=== PATIENT | male | born 1950 | race Caucasian/White ===

== ENCOUNTER 2021-08-15 11:06 | Emergency (ER) | payer OTHER ==
[~2021-08-15] VITALS: Ht 175.3 cm; Wt 77.1 kg
[2021-08-15 11:08] VITALS: BP 119/54
[2021-08-15 13:53] LABS: URINE BILIRUBIN NEGATIVE (Negative); URINE BLOOD TRACE (Negative); URINE CLARITY CLEAR; URINE COLOR YELLOW; URINE GLUCOSE-RANDOM* NEGATIVE (Negative); URINE KETONES NEGATIVE (Negative); URINE LEUKOCYTES-REFLEX NEGATIVE (Negative); URINE NITRITE-REFLEX NEGATIVE (Negative); URINE PROTEIN (DIPSTICK) NEGATIVE (Negative); URINE SPECIFIC GRAVITY <= 1.005 (1.005-1.035); URINE UROBILINOGEN 0.2 E.U./dl (0.2-1.0)
[2021-08-15 13:54] LABS: HEMATOCRIT 40.2 % (42.0-52.0); HEMOGLOBIN 13.6 gm/dL (14.0-18.0); MCH 30.5 pg (26.0-34.0); MCHC 33.9 g/dL (28.0-37.0); MCV 90.1 fL (80.0-100.0); RBC 4.46 mil/uL (4.50-6.00); RDW 13.4 % (10.5-14.5); WBC 9.5 thou/uL (4.0-11.0)
[2021-08-15 14:04] LABS: CALCIUM 8.9 mg/dL (8.5-10.1); CREATININE 0.7 mg/dL (0.7-1.3); POTASSIUM 3.5 mmol/L (3.5-5.1)
[2021-08-15 14:10] LABS: ALBUMIN 3.5 g/dL (3.4-5.0); TOTAL BILIRUBIN 0.6 mg/dL (0.2-1.0); TOTAL PROTEIN 7.2 g/dL (6.4-8.2)
--- NOTE | 2021-08-15 15:34 | EKG ---
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: nishant umanzor : 1950 Requested By: Madhuri Kidd Order Number: [id number] MD: Phan Garcia Measurements Intervals [place] Rate: 82 P: 138 TX: 138 QRS: -9 QRSD: 83 T: -26 QT: 463 QTc: 541 Interpretive Statements Sinus or ectopic atrial rhythm Probable left atrial enlargement Low voltage, extremity leads No previous ECG available for comparison Electronically Signed On 08-15-2021 15:33:59 CDT by Phan Garcia [email or web address] <ELECTRONICALLY SIGNED> By: Phan Garcia MD, [facility] 08/15/21 1533 1348 1348 Phan Garcia MD, FACC /EPI
[2021-08-15] MEDS ORDERED: TYLENOL325 MG PO (16:34)
[2021-08-15] MEDS ORDERED: VITAMIN D3250 MC1 PO (16:35)
[2021-08-15] MEDS ORDERED: DEPAKOTE125 MG PO (16:35)
[2021-08-15] MEDS ORDERED: HYDROXYZINE HCL25 M2 PO (16:36)
[2021-08-15] MEDS ORDERED: MELATONIN3 M1 PO (16:36)
[2021-08-15] MEDS ORDERED: IPRAT-ALBUT 0.5-3 ML INH (16:36)
[2021-08-15] MEDS ORDERED: DESYREL150 MG PO (16:37)
[2021-08-15] MEDS ORDERED: KLOR-CON M2020 MEQ PO (16:37)
[2021-08-15] MEDS ORDERED: NEOSPORIN OIN28.3 GM TOP (16:37)
[2021-08-15] MEDS ORDERED: FLOMAX0.4 MG PO (16:37)
== END 2021-08-15 14:43 ==
LOC: ER 11:06
PROVIDERS: Student in an Organized Health Care Education/Training Program
DX: G30.9 Alzheimer's disease, unspecified (principal); Z20.822 Contact with and (suspected) exposure to COVID-19; F02.81 Dementia in other diseases classified elsewhere, unspecified severity, with behavioral disturbance; E78.5 Hyperlipidemia, unspecified

== ENCOUNTER 2021-08-15 12:30 | Inpatient (IN) | payer OTHER ==
[~2021-08-15] VITALS: Ht 170.2 cm; Wt 69.0 kg
[2021-08-15] MEDS ORDERED: TYLENOL325 MG PO (16:34)
[2021-08-15] MEDS ORDERED: VITAMIN D3250 MC1 PO (16:35)
[2021-08-15] MEDS ORDERED: DEPAKOTE125 MG PO (16:35)
[2021-08-15] MEDS ORDERED: IPRAT-ALBUT 0.5-3 ML INH (16:36)
[2021-08-15] MEDS ORDERED: HYDROXYZINE HCL25 M2 PO (16:36)
[2021-08-15] MEDS ORDERED: MELATONIN3 M1 PO (16:36)
[2021-08-15] MEDS ORDERED: KLOR-CON M2020 MEQ PO (16:37)
[2021-08-15] MEDS ORDERED: NEOSPORIN OIN28.3 GM TOP (16:37)
[2021-08-15] MEDS ORDERED: DESYREL150 MG PO (16:37)
[2021-08-15] MEDS ORDERED: FLOMAX0.4 MG PO (16:37)
--- NOTE | 2021-08-15 18:35 | NUR ---
Arrived unit at 1707 via cart with a staff and security. Pt was wearing a brief and no belongings noted. Lungs clear, active bowel sound. No wounds noted. Pt have Scratch eve on both legs, a scrape bruise on his left arm. Pt was confused, no sign of SI/HI noted. No c/o pain at this time. Assessments completed, vss. DPOA was contacted for consent to treat and Fall contract. At this time pt is in his room resting. Pt have a NKDA. Full code. DPOA stated pt is allergic to bee stings. Pt is not a Fall risk. ID BAND ON. At this time pt is in his room resting. Will continue to monitor.
[2021-08-15 19:47] VITALS: BP 120/72
[2021-08-15 19:48] VITALS: BP 120/55
[2021-08-15 20:40] VITALS: BP 120/55
--- NOTE | 2021-08-16 04:59 | NUR ---
PATIENT HAS SLEPT THE WHOLE SHIFT. HE AWOKE SLIGHTLY ON ASSESSMENT BUT DID NOT SPEAK A WORD TONIGHT. HE APPEARED NOT TO WANT TO BE BOTHERED. HE WAS SO DROWSY HE WAS UNABLE TO TAKE HIS HS MEDS. DR CHOE WAS NOTIFIED OF THIS AND STATES IT WAS OKAY SINCE HE WAS STILL SLEEPING FROM EARLIER GEODON. PATIENT DID NOT APPEAR OR VOICE ANY PAIN ISSUES. UNABLE TO DO MUCH FOR PATIENT TONIGHT D/T SLEEPING. ROUTINE ROUNDS AND PRN ROUNDS DONE TO ASSESS PATIENT SAFETY AND STATUS. CONTINUING TO MONITOR.
[2021-08-16 05:15] LABS: CHOLESTEROL 144 mg/dL (<200); HDL CHOLESTEROL 30 mg/dL (>40); LDL CHOLESTEROL 79 mg/dL (<100); SERUM ASSESSMENT Clear; TC:HDL 4.8 Ratio (Not establshd); TRIGLYCERIDE 177 mg/dL (<150); VLDL 35 mg/dL (<40)
[2021-08-16 13:55] VITALS: BP 110/53
--- NOTE | 2021-08-16 17:34 | NUR ---
Franko was alert and oriented to self only throughout the day. This morning pt started the shift withdrawn and isolative to his room. He was noted to be soaked in urine INSOLE TACKER and this RN went in to change pt. He required education and a lot of encouragement regarding cares; he tried to constantly cover himself by pulling his wet brief back up but with repeated education as to the care being given, pt was cooperative. He mumbled and did not participate in assessment questions often stating "mmhmm" and displayed poor eye contact. He allowed this RN to physically assess him but he was unable to converse. Pt refused his morning medications but later took his evening depakote whole in pudding without difficulty. Around lunch time pt was noted by INSOLE TACKER to have BM smeared on his chair, bed, and on himself. It took 3 staff members to clean pt up with with repeated education given regarding care, pt was resistant but allowed staff to clean pt up. He then was brought to the dayroom where staff could monitor pt more closely. Pt was also placed on high fall risk as pt is unsteady on his feet and tends to shuffle his feet. This morning pt had a good appetite but was noted using his hands to feed himself. Pt slept in the kristian chair in the dayroom throughout dinner. Pt has new orders for zyprexa 2.5 mg BID, first dose to be at HS tonight. Pt has orders for zyprexa 2.5 mg IM for agitation/aggression, and orders to be toileted every 3 hours. Will continue to monitor.
[2021-08-16 19:36] VITALS: BP 136/69
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
[2021-08-17 04:07] LABS: GLYCOHEMOGLOBIN (HGB A1C) 5.6 % (4.8-5.6)
--- NOTE | 2021-08-17 04:34 | NUR ---
ASSUMED CARE ON 08/16/21 @ 1900, SEATED IN A OPAL CHAIR, CALM AND COOPERATIVE ASSESSMENT, INCONTINENT OF B&B. TAKES MEDS WHOLE WITH THIN WATER. MECHANICAL SOFT DIET. HIGH FALL RISK, STANDS TO TRANSFER TO TOILET, BUT HAD ALREADY BEEN INCONTINENT OF BLADDER. NO PRN REQUIRED FOR BEHAVIORS. SLEEPING WELL IN BED WITH BED IN LOW POSITION AND BED ALARM SET. WILL CONTINUE TO MONITOR PER UNIT PROTOCOL FOR SAFETY AND COMFORT.
[2021-08-17 09:55] VITALS: BP 106/58
[2021-08-17 10:53] VITALS: BP 106/58
--- NOTE | 2021-08-17 11:31 | NUR ---
Assumed care from overnight shift this am. Pt was sitting in chair in [facility] area during this time. Pt was only oriented to self during assessment. Pt knew his name, but could not voice anything else. When asked if he had any feelings of depression, pt stated no. When asked about anxiety, pt stated "yes, yes" but did not rate a score when asked. When asked if he had suicidal thoughts, pt stated "no." When asked if he had homicidal thoughts, pt did not answer, and just stared at this staff. Nurse repeated question, but client did not answer. Nurse asked about any audio or visual hallucinations, and client stated "no." Bowel sounds were present in all quadrants and lung sounds were normal. Pt refused medications during this time, and medications had to be crushed or spilt in half to be given to client. Nursing spoon fed client at this time. Shortly after breakfast and medication administration, the smell of feces was noted. Client was found to have wiped feces on his chair, blanket, pants, and hands while folding the blanket underneath him. Staff then changed this client, asking for assistance from VEHICLE CALIBRATION ENGINEER staff, further nursing staff, and security as client became aggressive, combative, and refused to stop reaching for his private area and fecal matter. This was done in an attempt to avoid medicating the client and as the least intrusive measure to assist in toileting and changing the client. Client was cleaned, briefs were changed, and new clothing was put on client to promote hygiene, prevent infection, and aid in assisting client. Client was then taken back to day room for fall precaution and observation to ensure safety.
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
[2021-08-17 19:15] VITALS: BP 126/73
--- NOTE | 2021-08-18 03:06 | NUR ---
PATIENT HAS BEEN IN BED SINCE BEGINING OF SHIFT, COULD NOT OR DID NOT WANT TO ANSWER ASSESSMENT QUESTIONS. PATIENT IS MED COMPLIANT WHEN MEDS ARE CRUSHED AND PUT IN PUDDING. PATIENT DOES DENY ALL PSYCH, IS INCONTINENT OF BOWEL AND BLADDER AND USES A W/C TO AMBULATE.
[2021-08-18 09:08] VITALS: BP 99/46
--- NOTE | 2021-08-18 14:06 | NUR ---
PATIENT CARE ASSUMED AT 0700, PATIENT SITTING IN THE COMMON AREA, PATIENT IS ALERT TO SELF AND CONFUSED NOT PLEASANT WITH ASSESSMENT BUT I WAS ABLE TO COMPLETE IT, BOWEL SOUND ACTIVE WITH SOFT AND ROUNDED ABDOMEN, SAT IN GROUP BU WITH SOFT AND ROUNDED ABDOMEN, LUNGS CLEAR, REGULAR HR, SAT IN GROUP BUT DID NOT PATICIPATE, PATIENT IS TO REMAIN IN HIS ROOM DUE TO COVID POSITIVE, FALL PRECAUTION IN PLACE, HE DENIES SI/HI. WILL CONTINUE TO MONITOR PATIENT FOR SAFETY AND BEHAVIOR
--- NOTE | 2021-08-18 17:49 | NUR ---
Updates faxed to [facility]
[2021-08-18 19:30] VITALS: BP 127/71
[2021-08-18 20:30] VITALS: BP 130/72
--- NOTE | 2021-08-19 05:49 | NUR ---
Attempt x 2 to get second COVID test, pt was adamant he did not want it. He grabbed the swab and would not allow me to advance. Pt remains asymptomatic, no coughing, Temp at HS was 99.0,
[2021-08-19 09:58] VITALS: BP 105/60
[2021-08-19 11:32] VITALS: BP 105/60
--- NOTE | 2021-08-19 14:34 | NUR ---
RESUMMED CARE FROM OVERNIGHT SHIFT THIS AM, PATIENT IN ROOM SLEEPING QUIETLY. PATIENT ALERT TO SELF ONLY PATIENT UNABLE TO TELL ME ABOUT SI/HI/AH/VH AT PRESENT. PATIENTS ABDOMEN SOFT BOWEL SOUNDS PRESENT PATIENTS LUNGS CLEAR. PATIENT TOOK MEDICATION CRUSHED IN APPLESAUCE, I DID PATIENTS COVID TEST THIS AM RESULTS PENDING AT THIS TIME. PATIENT CALM QUIET COOPERATIVE WILL CONTINUE TO MONITOR PATIENT FOR SAFETY AND BEHAVIORS.
--- NOTE | 2021-08-19 19:38 | NUR ---
COVID TEST RESULTS CAME BACK "NONE DETECTED." PT TO COME OFF ISOLATION PRECAUTIONS.
[2021-08-19 21:19] VITALS: BP 89/46
[2021-08-19 22:09] VITALS: BP 96/59
[2021-08-20 03:34] VITALS: BP 109/69
--- NOTE | 2021-08-20 04:42 | NUR ---
AT ONSET OF SHIFT PT WAS RESTING IN BED ASLEEP. PT WAS ON ISOLATION PRECAUTIONS AT ONSET OF SHIFT UNTIL NEGATIVE PCR TEST RESULTED. PT WAS LETHARGIC AND MOSTLY NONVERBAL DURING VITAL SIGNS AND MED PASS. PT WOULD NOT OPEN EYES TO LOOK AT MILL ATTENDANT, WOULD NOT REPOSITION IN BED, WOULD NOT ANSWER QUESTIONS AND WOULD NOT OPEN MOUTH TO TAKE MEDICATION CRUSHED IN PUDDING. VITAL SIGNS WERE OBTAINED; BLOOD PRESSURE AT 2100 WAS 89/46. RN CALLED MIKE ZEPEDA. OBTAINED ORDERS FOR 1,000 ML NORMAL SALINE. PT RECEIVED FLUIDS WHILE ON 1:1 WITH STAFF. BLOOD PRESSURE INCREASED TO 109/67 AFTER FLUIDS WERE ADMINISTERED. AFTER RECEIVING FLUIDS PT WAS LESS LETHARGIC AND ABLE TO SPEAK TO STAFF. PT'S SPEECH WAS SLURRED AND NONSENSICAL. PT DID NOT ANSWER QUESTIONS APPROPRIATELY. UNABLE TO ASSESS SI, HI, AND AVH. EVENTUALLY PT WAS COMPLIANT WITH PO MEDICATIONS. PT'S APPEARANCE WAS DISHEVELED. PT DID NOT GET OUT OF BED DURING THE SHIFT, BUT PT DID REPOSITION SELF IN BED. PT WAS INCONTINENT OF URINE. DURING CARES PT WOULD BECOME FUSSY; SHOUTING NO AND TRYING TO PULL CLOTHES BACK ON. PT DID TRY TO REMOVE IV, BUT WAS REDIRECTABLE BY STAFF.
[2021-08-20 06:27] LABS: CALCIUM 8.8 mg/dL (8.5-10.1); CREATININE 0.7 mg/dL (0.7-1.3); POTASSIUM 4.2 mmol/L (3.5-5.1)
[2021-08-20 07:39] VITALS: BP 113/64
[2021-08-20 09:29] VITALS: BP 113/64
--- NOTE | 2021-08-20 10:39 | NUR ---
Assumed care from overnight shift this am. Client was in activity area sitting in [facility]. Client knew that he was in the hospital, but did not know his name, the year, date, or hospital in which he was in. Client stated "yeah, yeah" when asked if he had depression or anxiety, but did not specify which he had and did not want to elaborate further on assessment. When asked about suicidal and homicidal ideation, client voiced "yeah, yeah" on both, and continued to state this when staff clarifed if he meant both. Client once again refused to elaborate further when asked if he had a plan or intent and appeared disoriented, eyes staring behind staff, and head nodding. Lung sounds clear; bowel sounds present. Client took his medications at this time along side some applesauce with staff assistance. Client is currently in activity area so that staff can monitor and observe client. No further concerns at this time. Will continue to monitor for pt safety and concerns.
--- NOTE | 2021-08-20 10:49 | NUR ---
Pt presented with agitation, kicking arms and legs and refusing to stay in chair. Pt kept trying to leave gerichair, refusing toileting or other assistance, starting to grunt and yell. Pt became combative with staff, trying to leave chair despite staff redirection. Due to patient safety, pt was given prn olanzapine 6q for agitation via IM. Pt is currently in chair resting. No further concerns noted at this time. Will continue to monitor for pt safety and concerns.
[2021-08-20 19:56] VITALS: BP 115/73
--- NOTE | 2021-08-21 03:37 | NUR ---
AT ONSET OF SHIFT PT WAS SITTIG IN DAY ROOM IN OPAL CHAIR WITH LAP JERALD FASTENED IN THE FRONT. THIS SHIFT PT WAS DISORIENTED X4. PT CANNOT HAVE A LOGICAL, LINEAR CONVERSATION. PT DID TALK THIS SHIFT BUT HIS SPEECH IS NONSENSICAL. PT CANNOT ANSWER QUESTIONS APPROPRIATELY OR FOLLOW INSTRUCTIONS. PT IS A HIGH FALL RISK. PT MADE SEVERAL ATTEMPTS TO CLIMB OUT OF THE OPAL CHAIR. PT IS STRONG ENOUGH TO LIFT HIS BODY OUT OF THE CHAIR AND PUSH HIMSELF BACK FAR ENOUGH SO THAT HE IS SITTING ON THE BACK OF THE CHAIR. PT ALSO ATTEMPTS TO CLIMB OUT OF BED BY CLIMBING OVER THE RAILINGS. WHEN REDIRECTED BY STAFF PT ATTEMPTED TO SWING AT STAFF, CUSSED AT STAFF AND CALLED STAFF NAMES. PT DOES NOT RESPOND TO REDIRECTION AND IS RESISTIVE WITH CARES. PT RECEIVED IM OLANZAPINE AT 2120 FOR AGITATION. PT CONTINUED TO ATTEMPT TO CLIMB OUT OF CHAIR AND YELL AT STAFF. PT ALSO TALKS TO HIMSELF AND HIS LANGUAGE WAS BECOMING INCREASINGLY AGITATED TALKING ABOUT "FUCKING MONEY" AND "WHORES." RN CALLED DR. CHOE AND RECEIVED ORDERS FOR 15MG GEODON IM AND TO USE THE LAP JERALD FASTENED BEHIND THE PATIENT AND TO PLACE THE PT ON A 1:1 WHILE LAP JERALD WAS IN USE. GEODON IM WAS ADMINISTERED AT 2308. LAP BUDY WAS IN PLACE FROM 2310 TO ROUGHLY 2345. PT WAS MOVED TO HIS ROOM AND PLACED IN BED. PT WAS RESTLESS IN BED, HALLUCINATING AND REACHING FOR OBJECTS THAT WERE NOT THERE. PT ASKED TO USE THE TOILET TWICE AND WAS ASSISTED BY STAFF. WHILE IN THE BATHROOM PT ATTEMPTED TO SIT DOWN NEXT THE TOILET. ONCE ON THE TOILET PT DID URINATE BUT PT STOOD UP OFF THE TOILET BEFORE HE WAS FINISHED URINATING. PT WAS MOVED BACK TO THE DAY ROOM, SEATED IN OPAL CHAIR WITH LAP JERALD AND 1:1. AT APROX 0245.
[2021-08-21 09:01] VITALS: BP 127/66
[2021-08-21 09:31] VITALS: BP 127/66
--- NOTE | 2021-08-21 15:39 | NUR ---
Resummed care from overnight shift this am. [facility]. Client presented asleep upon assessment, with even respirations. Client was seated at table with feet propped up in chair. Per report of evening or night nurse supervisor, client had slept zero hours, and had been combative night prior. Upon assessment, client continued to sleep and responded to staff attempts to wake him up by opening eyes and shaking head. As client had already been given prns night prior, morning medications were declined, and Dr Garcia was notifed in team meeting today. Adjustments were made to client medications by Dr. Garcia during this time. Staff was unable to assess state of si/hi/and/or audio and visual hallucinations due to client's sleeping and prns. Lung sounds normal; bowel sounds present. Client was toileted shortly after assessment. Client briefs and pants were changed and client was cleaned by nursing and EXPERIMENTAL MECHANIC staff. Client was then taken back into activity area in [facility] and placed by table for patient safetly. No further concerns at this time. Will continue to [facility] for patient safety and concerns.
--- NOTE | 2021-08-21 18:04 | NUR ---
MARGOT and Dr. Waldron particpated in family meeting with Swati. An update was given and medication discussed. There were no concerns during this meeting. MARGOT will continue to follow up
--- NOTE | 2021-08-21 18:38 | NUR ---
Nursing checked on patient during lunch time. Patient was sitting in gerichair eating lunch with MANAGER COMPENSATION support. Client did not voice any concerns at this time. Client still presented disoriented, and was not able to answer questions, however, was able to swallow and eat food with assistance. Client fell asleep after lunch in gerichair. Nursing adjusted pillow and repositioned for comfort at this time. No further concerns at this time. Will continue to monitor for pt safety and psychiatric concerns.
[2021-08-21 20:00] VITALS: BP 101/57
--- NOTE | 2021-08-22 02:45 | NUR ---
Assumed care on 08/21/21 @ 1900, in bed cooperative with assessment and medication administration, although quite drowsy. Able to swollow meds whole with water. Returned to sleep. Labs drawn for BMP and CBC without diff in morning lab draw. Will continue to monitor for comfort and safety as per unit protocol. Bed in low position and bed alarm set.
[2021-08-22 04:01] LABS: HEMATOCRIT 39.1 % (42.0-52.0); MCH 30.5 pg (26.0-34.0); MCHC 33.3 g/dL (28.0-37.0); MCV 91.5 fL (80.0-100.0); RBC 4.27 mil/uL (4.50-6.00); RDW 13.2 % (10.5-14.5); WBC 9.8 thou/uL (4.0-11.0)
[2021-08-22 04:33] LABS: CALCIUM 8.7 mg/dL (8.5-10.1); CREATININE 0.7 mg/dL (0.7-1.3); POTASSIUM 3.9 mmol/L (3.5-5.1)
[2021-08-22 09:51] VITALS: BP 133/68
--- NOTE | 2021-08-22 10:45 | NUR ---
RT Progress Note- Franko has participated very little with recreation therapy team. Franko had not been speaking upon first portion of this review period and only allowed for passive presence in groups. Over the last days, he has been sleeping much of the time. As Franko becomes more alert, staff will encourage further participation in both the milieu and recreation therapy groups as he does not wake when approached at this time.
[2021-08-22 10:56] VITALS: BP 133/68
--- NOTE | 2021-08-22 12:50 | NUR ---
Pt was alert and oriented to self only throughout the day. Pt mumbles "mmhmm" but otherwise is non-verbal, making it difficult to assess pt. Pt did not display SI/HI behaviors and does not appear to be responding to internal stimuli. He was drowsy this morning but easily arousable. Per report pt took his medications whole with water last night, but this morning pt had difficulty following directions and would not take his pills whole with water. This RN reattempted about an hour later with pills whole in pudding and pt was compliant with taking bites of pudding with the pills and appeared to have been swallowing them but per WELDER METAL FAB pt cheeked his medications and spit them out while they were getting him cleaned up. Unable to know what pt was able to swallow and what was spit out as per WELDER METAL FAB pills were saturated in urine and were tossed out. Pt's AM medications were marked as refused. Pt was meal compliant and able to feed himself, requiring some assistance. Pt was restless at times, and tried to get out of his chair, but was able to be redirected. Pt is incontinent but was less resistant with cares this shift. Will continue to monitor.
[2021-08-22 19:53] VITALS: BP 105/55
--- NOTE | 2021-08-23 03:16 | NUR ---
PATIENT TOOK MEDICATIONS CRUSHED WITH PUDDING AND HAS BEEN SLEEPING ON AND OFF, HAS BEEN RESTLESS AT TIME AND WHEN STAFF IS INCONTINENT, HE WILL FIGHT STAFF TOOTH AND NAIL TO BE LEFT ALONE.
[2021-08-23 09:38] VITALS: BP 114/65
[2021-08-23 09:59] VITALS: BP 114/65
--- NOTE | 2021-08-23 16:07 | NUR ---
Franko was drowsy throughout the day but easily arousable with persistance. Pt responded to his name by stating "mmhmm" but was otherwise nonverbal. Pt was drowsy throughout the day, sleeping in the dayroom in the kristian-chair. Pt was able to eat breakfast but slept through lunch. Pt was changed and was laid down in bed where pt may be more comfortable, with the bed alarm on. Pt was medication complaint, taking medications crushed in yogurt this morning. Pt remains on high fall risk precautions and has a yellow shirt on and yellow non-skid socks on. Pt did not appear to be in pain throughout the shift and was in a comfortable position. Will continue to monitor.
[2021-08-23 19:06] VITALS: BP 118/50
--- NOTE | 2021-08-24 02:34 | NUR ---
PATIENT IS CONFUSED AND UNABLE TO HOLD A CONVERSATION, PATIENT MIGHT BE ORIENTED TO SELF BUT ITS HARD TO TELL, PATIENT TOOK MEDICATION TONIGHT CRUSHED IN PUDDING. PATIENT HAS SLEPT TRHOUGH THE NIGHT.
[2021-08-24 09:28] VITALS: BP 91/76
[2021-08-24 11:29] VITALS: BP 91/76
--- NOTE | 2021-08-24 12:35 | NUR ---
PATIENT CARE RESUMMED AT 0700. PATIENT WAS UP IN THE OPAL-CHAIR UPON ROUNDS. PATIENT IS DROWSY THROUGHOUT THE DAY, BUT IS EASILY AROUSABLE. WHEN PATIENT AWAKES, PATIENT MUMBLES "MMHMM" BUT OTHERWISE NONVERVAL, MAKING THE ASSESSMENT ON THE PATIENT DIFFICULT. PATIENT PRESENTS TO HAVE NO SIGNS OF SI/HI/AH/VH. DURING ASSESSMENT PATIENT SHOWS NO FACIAL GRIMMICING OR SIGNS OF HAVING PAIN. PATIENTS LUNG SOUNDS ARE CLEAR. PATIENTS ABDOMEN IS SOFT WITH BOWEL SOUNDS PRESENT IN ALL FOUR QUADRANTS. PATIENT IS IS A&O*0, SLEEPING MOST OF THE DAY WITH SUDDLE PARTS OF THE DAY WHERE PATIENT IS ALERT. ROTATING AND TOILETING PATIENT EVERY 2 HOURS AND NEEDED. WILL CONTINUE TO MONITOR PATIENT FOR SAFETY AND BEHAVIORS. FALL PREVENTIONS ARE IN ORDER FOR THE PATIENT.
[2021-08-24 18:47] VITALS: BP 102/56
[2021-08-24 19:00] VITALS: BP 102/56
--- NOTE | 2021-08-25 02:26 | NUR ---
PATIENT CARE WAS RESUMED AT 1900. HE WAS SITTING IN THE DININING AREA. ALERT AND HE AMBULATES WITH OPAL CHAIR. LUNGS ARE CLEAR BS ACTIVE X4 QUADS. INCONTINENT OF BOWEL AND BLADDER. HE DENIES PAINS, SI/AVH/HI.MEDS ARE CRUSHED IN APPLE SAUCE. PATINET IS UNABLE TO VERBALIZE SOME NEEDS. HE IS A MAX ASSIT WITH CARE. CHAIR AND BED WERE ALARMED RESPECTIVELY. BED IS LOW, LOCKED AND ALARMED. [id number] CHECK IS ONGOING. ASSISTED WITH [facility] AND TRANSFERS.
[2021-08-25 09:07] VITALS: BP 129/71
[2021-08-25 11:57] VITALS: BP 129/71
--- NOTE | 2021-08-25 12:29 | NUR ---
3012 MARGOT spoke with Alek, , shruthi at [facility]. Alek stated she was unable to set up transportation fo the Pt due to the administration still looking over the clinical notes. Alek also requested a COVID test for the Pt. MARGOT point out the Pt has been tested several times since his admission with the last test being on 08/22/2021. MARGOT did fax over the requested notes. MARGOT will wait to hear back from the facility
[2021-08-25] MEDS ORDERED: FLOMAX0.4 MG PO (12:53)
[2021-08-25] MEDS ORDERED: DEPAKOTE SPRIN125 MG PO (12:54)
[2021-08-25] MEDS ORDERED: TRAZODONE HCL50 MG PO (12:56)
[2021-08-25] MEDS ORDERED: ZYPREXA 5 MG TAB5 M1 PO (12:58)
[2021-08-25] MEDS ORDERED: STIMULANT LAXA1 EACH PO (13:00)
--- NOTE | 2021-08-25 13:28 | NUR ---
1230 MARGOT spoke with Alek again concerning discharge. Alek has been able to set up transportation for the Pt. Discharge set for 08/25/2021 @ 2pm. Pt's DPOA was notified of this discharge
--- NOTE | 2021-08-25 14:54 | NUR ---
Franko was alert and oriented to self only throughout the day. He was unable to participate in assessment questions due to garbled speech and responses of "mmhmm", but pt was cooperative with cares. Pt took his medications crushed in yogurt this morning and fed himself breakfast. Pt was discharged from [facility] at 1430 via [facility] with [facility]. This RN escorted pt via w/c with Chintan to the facility van. Report was called to Evelyn at [facility] and provided with nurses station phone number and encouraged to call with any further questions. Pt's DPOa/daughter, Milagros, was called with an update and all questions answered regarding pt's discharge. Dishcarge summary and paperwork were provided to Chintan upon discharge.
--- NOTE | 2021-08-28 00:33 | D ---
[facility] [place] [address] DISCHARGE SUMMARY Name: BUDDY GARCIA Room #: 518B-B DIS IN M.R.#: [id number] Admission: 08/15/21 Attend Phys: Juan Diego Garcia DO Discharge: 08/25/21 Date of : 46 Report #: [id number] THIS REPORT FOR: cc: Phillip Castillo Kevin E. DO Kerstein, Andrew H. DO ~ DATE OF SERVICE: 08/25/2021 ATTENDING PSYCHIATRIST: Juan Diego Garcia DO NEGATIVE CUTTER: Mauricio Park MD DISCHARGE DIAGNOSES: Major neurocognitive disorder, likely due to Alzheimer's disease, early onset with behavioral disturbance, improved. MEDICAL COMORBIDITIES: Include recurrent UTIs, benign prostatic hypertrophy, generalized weakness and debility. The patient is discharged to [facility] for memory care, will be under the medical attention of Dr. 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 Psychiatric medical care per receiving facility. The patient's activity level is up with assist. Regular diet. He does use a walker. Recommend a trial of physical therapy at long term. DISCHARGE MEDICATIONS: As follows: Tamsulosin 0.8 mg oral daily for BPH, Depakote Sprinkles 750 mg oral at 0900 hours and 2100 hours for mood stabilization. Most recent Depakote level morning at 10:15 at 89. Trazodone 50 mg oral p.r.n. for sleep at 2300 hours. Olanzapine 15 mg oral at bedtime for additional impulse control. Senna/docusate 2 tabs oral daily for bowel motility, hold if diarrhea. LABORATORY DATA: Significant laboratories this admission, hematology on 08/22, H and H of 13.0 and 39.1, white count 9.8, platelet count 311. Chemistry: Sodium 144, potassium 3.9, chloride 109, bicarbonate 24, anion gap 11, BUN 15, creatinine 0.7, estimated GFR 111, glucose 92, calcium 8.7, triglycerides 177. Total cholesterol 144, LDL 79, HDL 30, A1c at this admission is 5.6. TSH is 1.435 on 08/16. REASON FOR ADMISSION: Back on 08/15 or so, a 70-year-old male, the patient has been at [facility] since June, apparently he had been combative with cares at facility, playing with his feces. He was sent out for geriatric-psychiatry evaluation. HOSPITAL COURSE: The patient was admitted to Geriatric-Psychiatry Unit. Additionally, we did have issues with significant fecal incontinence and him inappropriately touching and spreading his feces. He is already on olanzapine twice a day, this was titrated upwards. Depakote was initially increased from 250 t.i.d. to 375 t.i.d. I believe his first Depakote level was relatively low at 54. Over the period of 10 days or so of stay, the patient improved in his [facility] [address] [place] [address] DISCHARGE SUMMARY Name: BUDDY GARCIA Room #: 518B-B DIS IN M.R.#: [id number] Admission: 08/15/21 Attend Phys: Juan Diego Garcia DO Discharge: 08/25/21 Date of : 46 Report #: [id number] behavioral management. He has very advanced dementia and the thing that is keeping him off hospice is the fact that he does eat well. The gravity of his advanced dementia was discussed with the family and they are aware that hospice could be in the near future. PHYSICAL EXAMINATION: VITAL SIGNS: On the day of discharge, temperature 36.4, pulse 82, respirations 17, BP 129/71, O2 sat 97%. GENERAL: Seated in a Sherron chair, dressed in civilian clothes today. MENTAL STATUS EXAMINATION: This is a well-developed, ill-appearing male, apparently of stated age. Attention and concentration impaired. Speech nonverbal. Thought process, unable to assess. For thought content, he appeared calm, pleasant, not self-injurious. Insight and judgment impaired. Memory known to be impaired. Fund of knowledge is grossly diminished. PROGNOSIS: For this patient is guarded to poor given his age, advanced dementia and historical information. He should be a NO CODE at his nursing facility as well. <ELECTRONICALLY SIGNED> By: Juan Diego Garcia DO 08/28/21 0033 [id number] Juan Diego Garcia DO /nt
== END 2021-08-25 14:30 | DRG 57 ==
LOC: SBH
PROVIDERS: Hospitalist; Nurse Practitioner Family; ADMIT Psychiatry & Neurology Psychiatry; ATTEND Psychiatry & Neurology Psychiatry
DX: G30.0 Alzheimer's disease with early onset (principal); F02.81 Dementia in other diseases classified elsewhere, unspecified severity, with behavioral disturbance; F01.51 Vascular dementia, unspecified severity, with behavioral disturbance; R45.6 Violent behavior; N40.0 Benign prostatic hyperplasia without lower urinary tract symptoms; Z20.822 Contact with and (suspected) exposure to COVID-19; E78.5 Hyperlipidemia, unspecified; F29 Unspecified psychosis not due to a substance or known physiological condition; R53.81 Other malaise; Z79.899 Other long term (current) drug therapy; Z87.440 Personal history of urinary (tract) infections
CPT/HCPCS: 10880